=== PATIENT | female | born 1995 | race Caucasian/White ===

== ENCOUNTER 2017-03-04 01:20 | Emergency (ER) | payer BC ==
[~2017-03-04] VITALS: Ht 177.8 cm; Wt 129.8 kg
[2017-03-04 02:14] LABS: EOSINOPHIL COUNT 0.2 K/uL (0-0.3); HEMATOCRIT 39.4 % (36.0-46.0); IMMATURE GRANULOCYTE (%) 0.3 % (0.0-0.7); INSTRUMENT ABS NEUTROPHIL CT 5.8 K/uL; LYMPHOCYTE COUNT 2.4 K/uL (1.0-2.8); MCH 25.9 PG (29.0-34.0); MCHC 32.5 G/DL (30.0-36.0); MCV 79.8 FL (83-99); MEAN PLAT.VOLUME 10.2 uM^3 (9.5-12.4); MONOCYTE (%) 7.9 % (3-12); MONOCYTE COUNT 0.7 K/uL (0-0.8); NEUTROPHIL (%) 63.5 % (45-76); NEUTROPHIL COUNT 5.8 K/uL (1.8-6.4); PLATELET COUNT 309 K/uL (156-360); RBC DIS.WIDTH-CV 12.8 % (11.8-14.6); RBC DIS.WIDTH-SD 36.1 % (39-53); RED BLOOD COUNT 4.94 M/uL (3.80-5.20); WHITE BLOOD COUNT 9.2 K/uL (4.1-10.2)
[2017-03-04 02:24] LABS: CHLORIDE 106 mEq/L (99-109); POTASSIUM 3.5 mEq/L (3.7-5.4); SODIUM 140 mEq/L (136-147)
[2017-03-04 02:27] LABS: GLUCOSE 109 mg/dL (70-99)
[2017-03-04 02:28] LABS: ANION GAP 11 MEQ/L (2-14)
[2017-03-04 02:30] LABS: ALKALINE PHOSPHATASE 56 IU/L (3-129); GFR ESTIMATE (CALCULATED) > 59 mL/min/
[2017-03-04 02:31] LABS: UREA NITROGEN (BUN) 14 mg/dL (9-23)
[2017-03-04 02:32] LABS: ADD MIUA? YES; BILIRUBIN NEGATIVE; BLOOD NEGATIVE; COLOR YELLOW ((YELLOW)); GLUCOSE (STRIP) NEGATIVE; KETONES NEGATIVE; LEUKOCYTES NEGATIVE; NITRITE NEGATIVE; PROTEIN (STRIP) NEGATIVE; SPECIFIC GRAVITY 1.017 (1.000-1.030); UROBILINOGEN 0.2 MG/DL (0.2-1.0)
[2017-03-04 02:34] LABS: BACTERIA RARE /HPF; EPITHELIAL CELLS RARE /HPF; MUCUS 1+ /LPF; RED BLOOD CELLS 0-5 /HPF (0-5); UCUL ADDED? NO; WHITE BLOOD CELLS 0-5 /HPF (0-5)
[2017-03-04 02:34] LABS: LIPASE 16 U/L (1.0-51.0)
[2017-03-04 02:40] LABS: QUANTITATIVE HCG < 4.0 MIU/ML
[2017-03-04 02:53] LABS: TOTAL BILIRUBIN 0.2 mg/dL (0.0-1.0)
[2017-03-04] MEDS ORDERED: PERCOCET 5/31 TABLET PO (06:26)
[2017-03-04] MEDS ORDERED: ZOFRAN ODT4 MG PO (06:26)
[2017-03-04 06:34] VITALS: BP 137/87
== END 2017-03-04 06:39 | disposition home or self-care (01) ==
LOC: EME 01:20
PROVIDERS: Emergency Medicine
DX: K80.20 Calculus of gallbladder without cholecystitis without obstruction (principal)
CPT/HCPCS: 76705; 80053; 81003; 83690; 84702; 85025; 99281; 99285; J2405; J2765; J3010; J7030

== ENCOUNTER → 2017-03-17 | Outpatient (CLI) | payer BC ==
[~2017-03-17] MED LIST: PERCOCET 5/31 TABLET PO; ZOFRAN ODT4 MG PO
== END | disposition home or self-care (01) ==
LOC: NUC 10:38
DX: K82.8 Other specified diseases of gallbladder (principal)
CPT/HCPCS: 78226; A9510; J2270

== ENCOUNTER 2017-04-09 08:00 | Day surgery (SDC) | payer BC ==
[~2017-04-09] VITALS: Ht 177.8 cm; Wt 127.0 kg
[~2017-04-09 08:00] MED LIST changes: +ALLERGY10 M1 PO; +PRILOSEC20 MG PO; +SAFYRAL TABLET1 EACH PO; +SINGULAIR10 MG PO; +SYNTHROID50 MCG PO; +TRAMADOL HCL50 MG PO; +ZUPLENZ4 MG PO
[2017-04-09 09:25] VITALS: BP 140/90
[2017-04-09] MEDS ORDERED: OXYCODONE HCL5 MG PO (11:58)
[2017-04-09] MEDS ORDERED: HYDROCODON-ACE1 EA11 PO (11:58)
[2017-04-09 14:14] VITALS: BP 141/86
[2017-04-09 15:12] VITALS: BP 169/89
[2017-04-09 16:35] VITALS: BP 162/81
[2017-04-15 10:33] LABS: INTERNAL CONTROL VALID? YES
== END 2017-04-09 16:50 | disposition home or self-care (01) ==
LOC: SDC 08:00
PROVIDERS: Surgery
PROC: 0FT44ZZ Resection of Gallbladder, Percutaneous Endoscopic Approach (ICD-10-PCS; principal; 2017-04-09)
DX: K80.12 Calculus of gallbladder with acute and chronic cholecystitis without obstruction (principal); K66.0 Peritoneal adhesions (postprocedural) (postinfection); K82.1 Hydrops of gallbladder; K82.8 Other specified diseases of gallbladder; E66.01 Morbid (severe) obesity due to excess calories; Z68.41 Body mass index [BMI] 40.0-44.9, adult; E03.9 Hypothyroidism, unspecified; E28.2 Polycystic ovarian syndrome; K21.9 Gastro-esophageal reflux disease without esophagitis; Z83.79 Family history of other diseases of the digestive system
CPT/HCPCS: 84703; 88304; J0131; J0330; J1100; J1170; J1644; J2250; J2405; J2710; J3010; S0020